=== PATIENT | male | born 1990 | race Caucasian/White ===

== ENCOUNTER 2018-04-01 12:22 | Emergency (ER) | payer OTHER ==
[2018-04-01 13:25] VITALS: BP 133/78
--- NOTE | 2018-04-01 13:29 | ED ---
Lower Extremity - HPI Summary HPI Summary: Patient is a 27-year-old male who presents emergency department for pain to his right posterior foot times several days. Patient does not recall any specific injuries or falls. Pain is worse with walking and dorsiflexing foot. 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 Patient states he's been working more hours this past week given the holidays. Ibuprofen slightly improved pain. Symptoms are mild in severity. - History of Current Complaint Chief Complaint: EDExtremityLower Stated Complaint: RIGHT FOOT PAIN Time Seen by Provider: 04/01/18 12:37 Hx Obtained From: Patient Pain Intensity: 4 Pain Scale Used: 0-10 Numeric - Allergies/Home Medications Allergies/Adverse Reactions: Allergies Allergy/AdvReac Type Severity Reaction Status Date / Time Penicillins AdvReac Rash Verified 04/01/18 12:27 PMH/Surg Hx/FS Hx/Imm Hx Previously Healthy: Yes Respiratory History: Reports: Hx Sleep Apnea Infectious Disease History: No Infectious Disease History: Denies: Traveled Outside the [place] in Last 30 Days - Family History Known Family History: Positive: Hypertension - Social History Occupation: Employed Full-time Lives: With Family Alcohol Use: Rare Substance Use Type: Reports: None Smoking Status (MU): Never Smoked Tobacco Review of Systems Positive: Other - Right ankle pain Skin: Negative All Other Systems Reviewed And Are Negative: Yes Physical Exam Triage Information Reviewed: Yes Vital Signs On Initial Exam: Initial Vitals Temp Pulse Resp BP Pulse Ox 97.7 F 82 17 149/88 100 04/01/18 12:24 04/01/18 12:24 04/01/18 12:24 04/01/18 12:24 04/01/18 12:24 Vital Signs Reviewed: Yes Appearance: Positive: Well-Appearing - Pt. sitting in wheelchair in NAD. Family member present. Skin: Positive: Warm Head/Face: Positive: Normal Head/Face Inspection Eyes: Positive: Normal, EOMI Neck: Positive: Supple Musculoskeletal: Positive: Other - Pain over right acchilles tendon and reproducible pain with dorsiflexion. No calf swelling Neurological: Positive: Normal, CN Intact II-III Psychiatric: Positive: Affect/Mood Appropriate Diagnostics - Vital Signs Vital Signs Temp Pulse Resp BP Pulse Ox 04/01/18 13:24 97 F 78 16 133/78 99 04/01/18 12:24 97.7 F 82 17 149/88 100 - Laboratory Lab Statement: Any lab studies that have been ordered have been reviewed, and results considered in the medical decision making process. Lower Extremity Course/Dx - Course Course Of Treatment: Pt. sxs consistent with achilles tendonitis. Advised ice and elevation. Motrin as directed. Activity as tolerated. Close f.u with PCP if persist. Will return to ER if sxs change or worsen. Pt. understands and agrees with plan. - Diagnoses Differential Diagnosis/HQI/PQRI: Positive: Arthritis, Sprain, Strain Provider Diagnoses: Achilles tendinitis Discharge - Sign-Out/Discharge Documenting (check all that apply): Patient Departure - Discharge Plan Condition: Good Disposition: HOME Patient Education Materials: Achilles Tendinitis (ED) Referrals: Bobby Booth MD [Primary Care Provider] - Additional Instructions: Schedule a follow up appointment with your PCP Ice and elevate ankle intermittently Motrin 800mg every 8 hours x 1-2 weeks Return to ER if symptoms change or worsen - Billing Disposition and Condition Condition: GOOD Disposition: Home
== END 2018-04-01 13:24 | disposition home or self-care (01) ==
LOC: ED 12:22
DX: M76.60 Achilles tendinitis, unspecified leg (principal); M79.671 Pain in right foot; Z88.0 Allergy status to penicillin
CPT/HCPCS: 99281

== ENCOUNTER 2019-04-23 08:18 | Emergency (ER) | payer SELFPAY ==
--- NOTE | 2019-04-23 08:29 | ED ---
Back Pain - HPI Summary HPI Summary: Patient is a 28 y/o M presenting to the ED via EMS for a chief complaint of right lower back pain after a fall on 04/23/19. Patient notes that he slipped on ice and fell on his back at work. He rates his back pain as 9/10 in severity. He describes the back pain as a sharp sensation. Patient denies a head injury or loss of consciousness during the fall. He denies numbness, paresthesia, or weakness. Patient was able to ambulate after the fall. Any aggravating or alleviating factors are denied. PMHx is significant for right femur fracture. PSHx is significant for right leg surgery. FMHx is significant for cardiac disease. He denies alcohol, tobacco, or drug use. - History of Current Complaint Chief Complaint: EDFall Stated Complaint: FALL-LOWER BACK PAIN PER EMS Time Seen by Provider: 04/23/19 08:24 Hx Obtained From: Patient Onset/Duration: Sudden Onset, Lasting Minutes, Still Present Onset/Duration: Traumatic - Fall, Still Present Timing: Constant Back Pain Location: Is Discrete @ - Right lower back Severity Initially: Severe Severity Currently: Severe Pain Intensity: 9 Pain Scale Used: 0-10 Numeric Character: Sharp Aggravating Symptom(s): Nothing Alleviating Symptom(s): Nothing Associated Signs And Symptoms: Negative: Weakness, Numbness, Tingling Related History: Occupational Injury - Allergies/Home Medications Allergies/Adverse Reactions: Allergies Allergy/AdvReac Type Severity Reaction Status Date / Time Penicillins AdvReac Rash Verified 04/01/18 12:27 Home Medications: Home Medications Multivitamins/Minerals TAB* [Theragran/minerals TAB*] 1 tab PO DAILY 04/23/19 [ History Confirmed 04/23/19] PMH/Surg Hx/FS Hx/Imm Hx Previously Healthy: Yes Endocrine/Hematology History: Denies: Hx Diabetes Cardiovascular History: Denies: Hx Hypercholesterolemia, Hx Hypertension Respiratory History: Reports: Hx Sleep Apnea Sensory History: Denies: Hx Legally Blind, Hx Deafness Opthamlomology History: Denies: Hx Legally Blind EENT History: Denies: Hx Deafness - Surgical History Surgical History: Yes Surgery Procedure, Year, and Place: Right leg surgery Infectious Disease History: No Infectious Disease History: Denies: Traveled Outside the [place] in Last 30 Days - Family History Known Family History: Positive: Hypertension - Social History Occupation: Employed Full-time Lives: With Family Alcohol Use: Rare Hx Substance Use: No Substance Use Type: Reports: None Hx Tobacco Use: No Smoking Status (MU): Never Smoked Tobacco Review of Systems Positive: Myalgia - Right lower back pain Negative: Weakness, Paresthesia, Numbness, Syncope - Negative loss of consciousness All Other Systems Reviewed And Are Negative: Yes Physical Exam - Summary Physical Exam Summary: VITAL SIGNS: Reviewed. GENERAL: Patient is a well-developed and nourished MALE who is lying comfortable in the stretcher. Patient is not in any acute respiratory distress. HEAD AND FACE: No signs of trauma. No ecchymosis, hematomas or skull depressions. No sinus tenderness.. EYES: PERRLA, EOMI x 2, No injected conjunctiva, no nystagmus. EARS: Hearing grossly intact. Ear canals and tympanic membranes are within normal limits. MOUTH: Oropharynx within normal limits. NECK: Supple, trachea is midline, no adenopathy, no JVD, no carotid bruit, no c- spine tenderness, neck with full ROM. CHEST: Symmetric, no tenderness at palpation. LUNGS: Clear to auscultation bilaterally. No wheezing or crackles. CVS: Regular rate and rhythm, S1 and S2 present, no murmurs or gallops appreciated. ABDOMEN: Soft, non-tender. No signs of distention. No rebound, no guarding, and no masses palpated. Bowel sounds are normal. EXTREMITIES: FROM in all major joints, no edema, no cyanosis or clubbing. Paraspinal lumbar tenderness, especially on the right, negative straight leg test. NEURO: Alert and oriented x 3. No acute neurological deficits. Speech is normal and follows commands. SKIN: Dry and warm. Triage Information Reviewed: Yes Vital Signs On Initial Exam: Initial Vitals Temp Pulse Resp BP Pulse Ox 98.7 F 78 16 152/89 97 04/23/19 08:22 04/23/19 08:22 04/23/19 08:22 04/23/19 08:22 04/23/19 08:22 Vital Signs Reviewed: Yes Procedures - Sedation Patient Received Moderate/Deep Sedation with Procedure: No Diagnostics - Vital Signs Vital Signs Temp Pulse Resp BP Pulse Ox 04/23/19 08:22 98.7 F 78 16 152/89 97 - Laboratory Lab Statement: Any lab studies that have been ordered have been reviewed, and results considered in the medical decision making process. - Radiology Lumbar Spine X-ray Radiology Interpretation Completed By: Radiologist Summary of Radiographic Findings: Lumbar Spine X-ray IMPRESSION: DEGENERATIVE DISC DISEASE WITH MILD FACET OSTEOARTHRITIS, SOMEWHAT GREATER THAN EXPECTED FOR AGE. NO ACUTE OSSEOUS INJURY OF THE LUMBAR SPINE. Reviewed by Dr. Elise. Back Pain Course/Dx - Course Assessment/Plan: Patient is a 28 y/o M presenting to the ED via EMS for a chief complaint of right lower back pain after a fall on 04/23/19. Patient notes that he slipped on ice and fell on his back at work. He rates his back pain as 9/10 in severity. He describes the back pain as a sharp sensation. Patient denies a head injury or loss of consciousness during the fall. He denies numbness, paresthesia, or weakness. Patient was able to ambulate after the fall. Any aggravating or alleviating factors are denied. PMHx is significant for right femur fracture. PSHx is significant for right leg surgery. FMHx is significant for cardiac disease. He denies alcohol, tobacco, or drug use. Lumbar x-ray impression: Degenerative disc disease with mild facet osteoarthritis. Somewhat later than expected for age. No acute osseous injury of the lumbar spine. In the ED course, the patient was given Toradol and Norflex and the symptoms improved. At this point I discussed all the findings and test results were discussed with the patient. Patient was instructed to return to the emergency room immediately if any of the symptoms return or worsen. Patient understands and agrees. Patient is able to ambulate freely w/o aid or limp in the ER. Plan of care was discussed with the patient and patient who understands and agrees. All questions were answered at patient's satisfaction. There were no further complaints or concerns. Neurological exam before discharge: Patient is alert and oriented x 3. No acute neurological deficits. Patient is hemodynamically stable. Patient is to follow up with his primary care physician in the next 2-3 days. He understands and agrees. - Diagnoses Provider Diagnoses: Back pain Discharge ED - Sign-Out/Discharge Documenting (check all that apply): Patient Departure - Discharge - Discharge Plan Condition: Stable Disposition: HOME Prescriptions: Cyclobenzaprine TAB* [Flexeril 10 MG TAB*] 10 mg PO TID PRN #12 tab PRN Reason: Spasms - Muscle Ibuprofen TAB* [Motrin TAB* 800 MG] 800 mg PO Q8H PRN #30 tab PRN Reason: Pain - Moderate Patient Education Materials: Back Pain (ED) Forms: *Work Release Referrals: Bobby Booth MD [Primary Care Provider] - Additional Instructions: FOLLOW UP WITH YOUR PRIMARY CARE PROVIDER WITHIN 3 DAYS. RETURN TO THE EMERGENCY DEPARTMENT FOR ANY WORSENING OR NEW SYMPTOMS. - Billing Disposition and Condition Condition: STABLE Disposition: Home - Attestation Statements Document Initiated by Scribe: Yes Documenting Scribe: Jenelle Salazar Provider For Whom Hiro is Documenting (Include Credential): Marino Elise MD Scribe Attestation: Jenelle Thomas scribed for Marino Elise MD on 04/23/19 at 1835. Scribe Documentation Reviewed: Yes Provider Attestation: The documentation as recorded by the Jenelle loo accurately reflects the service I personally performed and the decisions made by , Marino Elise MD Status of Scribe Document: Viewed
[2019-04-23] MEDS ORDERED: Ketorolac *IM* INJ* 60 MG/2 ML VIAL IM ONE (08:40)
[2019-04-23] MEDS ORDERED: Orphenadrine Citrate IV* 30 MG/ML 2 ML VIAL IM ONE (08:40)
[2019-04-23 11:18] VITALS: BP 132/97
== END 2019-04-23 11:17 | disposition home or self-care (01) ==
LOC: ED 08:18
DX: M54.9 Dorsalgia, unspecified (principal); M51.35 Other intervertebral disc degeneration, thoracolumbar region; Z88.0 Allergy status to penicillin
CPT/HCPCS: 72100; 96372; 99282; J1885; J2360